=== PATIENT | female | born 1995 | race Caucasian/White ===

== ENCOUNTER 2019-09-15 18:51 | Emergency (ER) | payer OTHER ==
--- NOTE | 2019-09-15 19:36 | ER Document Report ---
ED Medical Screen (RME) - General Chief Complaint: Abdominal Pain Stated Complaint: ABDOMINAL PAIN, DIZZINESS Time Seen by Provider: 09/15/19 19:00 - HPI Notes: 09/15/19 19:07 24-year-old female 2 para 0 who is roughly 6.5 weeks presents the room for complaints of left ovarian pain while driving approximately 3 hours ago along with lightheadedness and dizziness denies any vaginal bleeding. Patient states she did have an about 7 years ago. Patient states she is concerned about an ectopic . Reports nausea but denies any vomiting or diarrhea. Patient states she is currently very "nervous". Denies any fever chills, chest pain, shortness of breath, any trauma. I have greeted and performed a rapid initial assessment of this patient. A comprehensive ED assessment and evaluation of the patient, analysis of test results and completion of the medical decision making process will be conducted by additional ED providers. PHYSICAL EXAMINATION: GENERAL: Well-appearing, well-nourished and in no acute distress. CV: sinus tachycardia LUNGS: No respiratory distress abd: No CVA tenderness appreciated bilaterally. - Related Data Allergies/Adverse Reactions: amoxicillin Allergy (Verified 09/15/19 19:03)
[2019-09-15 19:57] LABS: ABSOLUTE LYMPHOCYTES (AUTO) 2.6 10^3/uL (0.5-4.7); ABSOLUTE MONOCYTES (AUTO) 0.5 10^3/uL (0.1-1.4); ABSOLUTE NEUT (AUTO) 6.6 10^3/uL (1.7-8.2); BASOPHILS % (AUTO) 0.4 % (0-2); EOSINOPHILS % (AUTO) 0.2 % (0-6); HEMATOCRIT 41.8 % (36.0-47.0); HEMOGLOBIN 14.8 g/dL (12.0-15.5); LYMPHOCYTES % (AUTO) 26.3 % (13-45); MEAN CORPUSCULAR HEMOGLOBIN 30.1 pg (27.0-33.4); MEAN CORPUSCULAR HGB CONC 35.4 g/dL (32.0-36.0); MEAN CORPUSCULAR VOLUME 85 fl (80-97); MONOCYTES % (AUTO) 5.4 % (3-13); PLATELET COUNT 217 10^3/uL (150-450); RED BLOOD COUNT 4.92 10^6/uL (3.72-5.28); RED CELL DISTRIBUTION WIDTH 12.8 % (11.5-14.0); SEGMENTED NEUTROPHILS % (AUTO) 67.7 % (42-78); TOTAL CELLS COUNTED % (AUTO) 100 %; WHITE BLOOD COUNT 9.7 10^3/uL (4.0-10.5)
[2019-09-15 20:16] LABS: ALKALINE PHOSPHATASE 46 U/L (38-126); ANION GAP 12 (5-19); ASPARTATE AMINO TRANSFERASE 22 U/L (14-36); BILIRUBIN,TOTAL 0.9 mg/dL (0.2-1.3); BLOOD UREA NITROGEN 10 mg/dL (7-20); CALCIUM 9.6 mg/dL (8.4-10.2); CARBON DIOXIDE 23 mmol/L (22-30); CHLORIDE 104 mmol/L (98-107); GLUCOSE 84 mg/dL (75-110); POTASSIUM 3.6 mmol/L (3.6-5.0)
[2019-09-15 20:19] LABS: APPEARANCE,URINE SLIGHTLY-CLOUDY; BILIRUBIN,URINE NEGATIVE (NEGATIVE); COLOR,URINE AMBER; GLUCOSE, URINE NEGATIVE (NEGATIVE); KETONES,URINE 80 mg/dL (NEGATIVE); LEUKOCYTE ESTERASE,URINE NEGATIVE (NEGATIVE); NITRITE,URINE NEGATIVE (NEGATIVE); PROTEIN,URINE 100 mg/dL (NEGATIVE); URINE SPECIFIC GRAVITY 1.033
--- NOTE | 2019-09-15 20:37 | ER Document Report ---
ED General - General Chief Complaint: Abdominal Pain Stated Complaint: ABDOMINAL PAIN, DIZZINESS Time Seen by Provider: 09/15/19 19:00 Primary Care Provider: PRO CORADO PA [Primary Care Provider] - Follow up as needed Notes: Ida notes 09/15/19 19:07 24-year-old female 2 para 0 who is roughly 6.5 weeks presents the room for complaints of left ovarian pain while driving approximately 3 hours ago along with lightheadedness and dizziness denies any vaginal bleeding. Patient states she did have an about 7 years ago. Patient states she is concerned about an ectopic . Reports nausea but denies any vomiting or diarrhea. Patient states she is currently very "nervous". Denies any fever chills, chest pain, shortness of breath, any trauma. 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 He is a marine. Patient is dependent. She is now around 6 weeks at last menstrual period july. Patient had a when she was 17 years old and just found out she was 2 weeks prior. She has had left-sided ovarian pain for the last 3 days but worse over the last several hours 3 PM. Patient reports she will probably going to [facility] to have her baby but has not seen [facility] as yet. She has lost 2 pounds over the last 1 week. She was 150 pounds and now weighs 2 pounds less on our scales. Patient was very worried that she may have an ectopic or ovarian cyst like her mother. Patient has been using a Google search in order to evaluate her left inguinal pain. She denies any dysuria vaginal bleeding vaginal discharge or history of STDs. Her ultrasound did show 5-week 4-day IUP with right ovarian cyst corpus luteum per radiology. Patient was much relieved but would like her blood type for her [employer]. - Related Data Allergies/Adverse Reactions: amoxicillin Allergy (Verified 09/15/19 19:03) Past Medical History - General Information source: Patient - Social History Smoking Status: Never Smoker Cigarette use (# per day): No Chew tobacco use (# tins/day): No Smoking Education Provided: No Frequency of alcohol use: None Drug Abuse: None Family History: Reviewed & Not Pertinent, Other - Ovarian cyst in mother Patient has suicidal ideation: No Patient has homicidal ideation: No Review of Systems - Review of Systems Constitutional: No symptoms reported EENT: No symptoms reported Cardiovascular: No symptoms reported Respiratory: No symptoms reported Gastrointestinal: See HPI, Abdominal pain, Nausea Genitourinary: See HPI, Flank pain, Other - Left inguinal pain Female Genitourinary: See HPI, Last menstrual period - 7 apr Musculoskeletal: No symptoms reported Skin: No symptoms reported Hematologic/Lymphatic: No symptoms reported Neurological/Psychological: No symptoms reported Physical Exam - Vital signs Vitals: Temp Pulse Resp BP Pulse Ox 98.6 F 120 H 16 130/88 H 100 09/15/19 18:55 09/15/19 18:55 09/15/19 18:55 09/15/19 18:55 09/15/19 18:55 Interpretation: Tachycardic - General General appearance: Alert - HEENT Head: Normocephalic, Atraumatic Eyes: Normal Pupils: PERRL Mouth/Lips: Normal Mucous membranes: Normal Pharynx: Normal Neck: Normal - Respiratory Respiratory status: No respiratory distress Chest status: Nontender Breath sounds: Normal Chest palpation: Normal - Cardiovascular Rhythm: Regular Heart sounds: Normal auscultation Murmur: No - Abdominal Inspection: Normal Distension: No distension Bowel sounds: Normal Tenderness: Tender - LLQ moderate pain on palpation - Rectal Stool: Other - Deferred - Genitourinary Speculum exam: Other - Deferred - Back Back: Normal, Nontender - Extremities General upper extremity: Normal inspection, Nontender, Normal color, Normal ROM, Normal temperature General lower extremity: Normal inspection, Nontender, Normal color, Normal ROM, Normal temperature, Normal weight bearing. No: July's sign - Neurological Neuro grossly intact: Yes Cognition: Normal Orientation: AAOx4 Jackie Coma Scale Eye Opening: Spontaneous Jackie Coma Scale Verbal: Oriented [place] Coma Scale Motor: Obeys Commands [place] Coma Scale Total: 15 Speech: Normal Motor strength normal: LUE, RUE, LLE, RLE Sensory: Normal - Psychological Associated symptoms: Anxious - Skin Skin Temperature: Warm Skin Moisture: Dry Course - Vital Signs Vital signs: Temp Pulse Resp BP Pulse Ox 98.6 F 120 H 16 130/88 H 100 09/15/19 19:04 09/15/19 18:55 09/15/19 18:55 09/15/19 18:55 05/21/20 18:55 - Laboratory Result Diagrams: 09/15/19 19:45 09/15/19 19:45 Laboratory results interpreted by me: 09/15/19 09/15/19 19:45 19:58 Beta HCG, Quant 5914.10 H Urine Protein 100 H Urine Ketones 80 H Urine Urobilinogen 2.0 H - Diagnostic Test Radiology reviewed: Reports reviewed Critical Care Note - Critical Care Note Total time excluding time spent on procedures (mins): 90 Discharge - Discharge Clinical Impression: Qualifiers: Weeks of gestation: less than 8 weeks Qualified Code(s): Z3A.01 - Less than 8 weeks gestation of Ovarian cyst Qualifiers: Laterality: right Qualified Code(s): N83.201 - Unspecified ovarian cyst, right side Condition: Good Disposition: HOME, SELF-CARE Instructions: Abdominal Pain ([facility]) Additional Instructions: [place] return to ER as needed; take Tylenol for pain if pain is very severe. Use warm compresses as needed. Forms: Return to Work Referrals: PRO CORADO PA [Primary Care Provider] - Follow up as needed
--- NOTE | 2019-09-15 20:57 | EKG REPORT ---
SEVERITY:- BORDERLINE ECG - SINUS TACHYCARDIA BORDERLINE T ABNORMALITIES, DIFFUSE LEADS : Confirmed by: Jerica Mccormick MD 15-Sep-2019 20:57:05
--- NOTE | 2019-09-15 21:10 | RADIOLOGY REPORT (SQ) ---
US TRANSVAGINAL HISTORY: 24 years Female left pelvic pain. COMPARISON: No relevant studies are available for comparison. Technique: Transvaginal Imaging of the pelvis was performed. Color and spectral imaging was performed. Uterus: The uterus measures 8.3 x 3.8 x 4.9 cm. The cervix is closed and measures 2.8 cm in length. Within the endometrium is a discrete oval fluid collection which measures 1.0 x 1.0 x 0.5 cm. This may represent a gestational sac. No yolk sac or pole. The mean sac diameter is 8.2 mm which correlates with a gestational age of five weeks two days. Right Ovary: The right ovary measures 3.9 x 3.7 x 3.4 cm and contains a simple cyst which measures 2.8 x 3.0 x 2.7 cm.. Normal color and spectral doppler waveforms Left Ovary: Measures 4.1 x 2.2 x 2.0 cm and is morphologically normal.. Normal color and spectral doppler waveforms Other: No free fluid. IMPRESSION: Apparent gestational sac within the uterus with a gestational age of five weeks four days. No pole. No yolk sac. Large simple right ovarian cyst consistent with a corpus luteal cyst.
[2019-09-15 22:34] VITALS: BP 125/77
== END 2019-09-15 22:45 | disposition home or self-care (01) ==
LOC: ER 18:51
DX: O34.81 Maternal care for other abnormalities of pelvic organs, first trimester (principal); N83.11 Corpus luteum cyst of right ovary; O26.891 Other specified pregnancy related conditions, first trimester; R11.0 Nausea; R10.32 Left lower quadrant pain; R42 Dizziness and giddiness; Z3A.01 Less than 8 weeks gestation of pregnancy; Z88.0 Allergy status to penicillin
CPT/HCPCS: 36415; 76817; 80053; 81001; 84702; 85025; 93005; 93010; 93976; 99291; 99292